=== PATIENT | female | born 1985 | race American Indian/Alaskan Native ===

== ENCOUNTER 2017-05-19 06:55 | Emergency (ER) | payer BC ==
[2017-05-19 07:09] VITALS: TEMP 97.5
[2017-05-19] MEDS ORDERED: HYDROmorphone 1 mg/ml ISec IVP STA ×2 (07:39→11:24)
[2017-05-19] MEDS ORDERED: Sodium Chloride 0.9% 1,000 ML IV STA (07:39)
[2017-05-19] MEDS ORDERED: Iohexol 240 (50 ml) PO STA (07:39)
[2017-05-19] MEDS ORDERED: Belladonna-Phenobarbital PO STA (07:39)
--- NOTE | 2017-05-19 07:39 | C.PDOC ---
History Of Present Illness Pt c/o upper abdominal pain and vomiting x 2 weeks, was seen in [facility] [place] twice during last week, CT shows some ? "arterial narrowing". Patient was d/c home on Cipro+Flagyl+ Percocet without improvement. Patient states she "cannot keep anything down" and reports she has an Appt with GI for the next week. No other complaints at this time. Time Seen by Provider: 05/19/17 07:25 Chief Complaint (Nursing): Abdominal Pain History Per: Patient History/Exam Limitations: no limitations Onset/Duration Of Symptoms: Days Current Symptoms Are (Timing): Still Present Location Of Pain/Discomfort: Diffuse Past Medical History Reviewed: Historical Data, Nursing Documentation, Vital Signs Vital Signs: Last Vital Signs Temp 97.5 F L 05/19/17 07:04 Pulse 68 05/19/17 12:29 Resp 16 05/19/17 12:29 BP 98/68 L 05/19/17 12:29 Pulse Ox 100 05/19/17 12:29 - Medical History PMH: Anxiety, HTN Surgical History: No Surg Hx Family History: States: No Known Family Hx - Social History Hx Alcohol Use: Yes Hx Substance Use: No - Immunization History Hx Influenza Vaccination: No Hx Pneumococcal Vaccination: No Review Of Systems Constitutional: Negative for: Fever, Chills Gastrointestinal: Positive for: Vomiting, Abdominal Pain. Negative for: Diarrhea Genitourinary: Negative for: Dysuria, Vaginal Bleeding Musculoskeletal: Negative for: Back Pain Skin: Negative for: Rash Physical Exam - Physical Exam Appears: Non-toxic, Other (Crying, Anxious) Skin: Normal Color, Warm, No Rash Head: Atraumatic, Normacephalic Oral Mucosa: Moist Neck: Normal ROM, Supple Cardiovascular: Rhythm Regular Respiratory: Normal Breath Sounds, No Rales, No Rhonchi, No Wheezing Gastrointestinal/Abdominal: Soft, Tenderness (Generalized), Guarding (Upper abdomen), No Rebound Back: No CVA Tenderness Extremity: Normal ROM, Capillary Refill (<2 seconds) Neurological/Psych: Oriented x3 ED Course And Treatment - Laboratory Results Result Diagrams: 05/19/17 07:52 05/19/17 07:52 O2 Sat by Pulse Oximetry: 97 (RA) Pulse Ox Interpretation: Normal - CT Scan/US CT abdomen/pelvis Other Rad Studies (CT/US): Read By Radiologist, Radiology Report Reviewed CT/US Interpretation: Accession No. : [id number]. Patient Name / ID : RAYMOND PALOMO / [id number]. Exam Date : 05/19/2017 09:59:47 ( Approved ). Study Comment : Sex / Age : F / 31Y. Creator : Jen Mackenzie. Dictator : Dia Holguin MD. Protective Services Case Worker : Publicity Director : Dia Holguni MD. Approver2 : Report Date : 05/19/2017 10:27:49. My Comment : . PROCEDURE: CT Abdomen and Pelvis with oral and IV contrast. HISTORY: abd pain, vomiting. COMPARISON: None available. TECHNIQUE: Contiguous axial images of the abdomen and pelvis. Oral and IV contrast was administered. Coronal and Sagittal reformats generated and reviewed. Contrast dose: 100 mL Visipaque. Radiation dose: Total exam DLP = 393.63 mGy-cm. This CT exam was performed using one or more of the following dose reduction techniques: Automated exposure control, adjustment of the mA and/or kV according to patient size, and/ or use of iterative reconstruction technique. FINDINGS: LOWER THORAX: No visible consolidation, pleural effusion, or pneumothorax. LIVER: Unremarkable. GALLBLADDER AND BILE DUCTS: Unremarkable. PANCREAS: Unremarkable. SPLEEN: Unremarkable. ADRENALS: Unremarkable. KIDNEYS AND URETERS: The kidneys enhance symmetrically. No hydronephrosis or obstructing renal calculus. BLADDER: The urinary bladder appears unremarkable. REPRODUCTIVE: Uterus is present. IUD. APPENDIX: Unremarkable. BOWEL: The stomach is nondistended. The bowel loops appear within normal limits of caliber without evidence of intestinal obstruction.Circumferential thickening of the rectosigmoid colon can be seen in setting of chronic diverticulosis. Clinical correlation is recommended to exclude colitis (I.e. infectious, inflammatory, ischemic) or diverticulitis. PERITONEUM: No significant free fluid. No definite free air. LYMPH NODES: No bulky lymphadenopathy identified. VASCULATURE: No aortic aneurysm. BONES: No acute osseous abnormality is detected. OTHER FINDINGS: None. IMPRESSION: Circumferential thickening of the rectosigmoid colon can be seen in setting of chronic diverticulosis. Clinical correlation is recommended to exclude colitis (I.e. infectious, inflammatory, ischemic) or diverticulitis. Progress Note: Plan: labs, Repeat CT. Dilaudid, Zofran, pepcid, IVF. On re- evaluation patient feels better, tolerates po and is stable to be d/c home with GI follow up. Disposition - Disposition Disposition: HOME/ ROUTINE Disposition Time: 12:11 Condition: IMPROVED Additional Instructions: Follow up with your PMD and Batch And Furnace Manager as scheduled. Return to Ed if feel worse. 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 - Scribe Statement The provider has reviewed the documentation as recorded by the Misbah Fernandez All medical record entries made by the Misbah were at my direction and personally dictated by me. I have reviewed the chart and agree that the record accurately reflects my personal performance of the history, physical exam, medical decision making, and the department course for this patient. I have also personally directed, reviewed, and agree with the discharge instructions and disposition.
[2017-05-19 07:56] LABS: BASO # 0.1 K/uL (0.0-0.2); BASO % 0.8 % (0.0-2.0); EOS % 0.3 % (0.0-4.0); HEMOGLOBIN 13.4 g/dL (11.0-16.0); MEAN CELL VOLUME 83.1 fL (81.0-99.0); MEAN CORPUSCULAR HEMOGLOBIN 27.9 pg (27.0-31.0); MEAN CORPUSCULAR HGB CONC 33.5 g/dL (33.0-37.0); MEAN PLATELET VOLUME 7.6 fL (7.2-11.7); MONO # 0.7 K/uL (0.0-0.8); MONO % 7.9 % (0.0-10.0); NEUT # 5.7 K/uL (1.8-7.0); RBC 4.79 Mil/uL (3.80-5.20); RED CELL DISTRIBUTION WIDTH 13.1 % (11.5-14.5); WHITE BLOOD COUNT 8.5 K/uL (4.8-10.8)
[2017-05-19] MEDS ORDERED: Iohexol 240 (50 ml) ONE (08:04)
[2017-05-19] MEDS ORDERED: Belladonna-Phenobarbital ONE (08:05)
[2017-05-19] MEDS ORDERED: Sodium Chloride 0.9% 1,000 ML ONE (08:05)
[2017-05-19 08:11] LABS: INR 1.2; PROTHROMBIN TIME 13.8 SECONDS (9.7-12.2)
[2017-05-19 08:19] LABS: CALCIUM 8.9 mg/dl (8.6-10.4); GFR AFRICAN-AMERICAN > 60; GFR NON-AFRICAN AMERICAN > 60; LIPASE 267 U/L (23-300)
[2017-05-19 08:21] LABS: ALB/GLOB RATIO 1.3 (1.0-2.1); ALBUMIN 4.7 g/dL (3.5-5.0); ALT/SGPT 23 U/L (9-52); AST/SGOT 31 U/L (14-36); BLOOD UREA NITROGEN 12 mg/dL (7-17)
[2017-05-19 08:23] LABS: HCG,QUALITATIVE URINE NEGATIVE (NEGATIVE)
[2017-05-19 08:37] LABS: SQUAMOUS EPITHIAL 4 /hpf (0-5); URINE BACTERIA OCC (<OCC); URINE BILIRUBIN NEGATIVE (NEGATIVE); URINE CLARITY Clear (Clear); URINE COLOR Yellow (YELLOW); URINE GLUCOSE (UA) NORMAL (Normal); URINE NITRATE NEGATIVE (NEGATIVE); URINE PROTEIN 1+ mg/dL (NEGATIVE); URINE UROBILINOGEN NORMAL mg/dL (0.2-1.0)
[2017-05-19 08:38] LABS: URINE BLOOD TRACE (NEGATIVE); URINE LEUKOCYTE ESTERASE TRACE Leu/uL (Negative)
[2017-05-19] MEDS ORDERED: Iodixanol 320 MG/ML 100 ML BOTTLE IV ONE (09:32)
[2017-05-19 10:25] VITALS: PULSE 68; RESP 16
--- NOTE | 2017-05-19 11:08 | CT ---
PROCEDURE: CT Abdomen and Pelvis with oral and IV contrast. HISTORY: abd pain, vomiting COMPARISON: None available. TECHNIQUE: Contiguous axial images of the abdomen and pelvis. Oral and IV contrast was administered. Coronal and Sagittal reformats generated and reviewed. Contrast dose: 100 mL Visipaque Radiation dose: Total exam DLP = 393.63 mGy-cm. This CT exam was performed using one or more of the following dose reduction techniques: Automated exposure control, adjustment of the mA and/or kV according to patient size, and/or use of iterative reconstruction technique. FINDINGS: LOWER THORAX: No visible consolidation, pleural effusion, or pneumothorax. LIVER: Unremarkable. GALLBLADDER AND BILE DUCTS: Unremarkable. PANCREAS: Unremarkable. SPLEEN: Unremarkable. ADRENALS: Unremarkable. KIDNEYS AND URETERS: The kidneys enhance symmetrically. No hydronephrosis or obstructing renal calculus. BLADDER: The urinary bladder appears unremarkable. REPRODUCTIVE: Uterus is present. IUD. APPENDIX: Unremarkable. BOWEL: The stomach is nondistended. The bowel loops appear within normal limits of caliber without evidence of intestinal obstruction.Circumferential thickening of the rectosigmoid colon can be seen in setting of chronic diverticulosis. Clinical correlation is recommended to exclude colitis (I.e. infectious, inflammatory, ischemic) or diverticulitis. PERITONEUM: No significant free fluid. No definite free air. LYMPH NODES: No bulky lymphadenopathy identified. VASCULATURE: No aortic aneurysm. BONES: No acute osseous abnormality is detected. OTHER FINDINGS: None. IMPRESSION: Circumferential thickening of the rectosigmoid colon can be seen in setting of chronic diverticulosis. Clinical correlation is recommended to exclude colitis (I.e. infectious, inflammatory, ischemic) or diverticulitis.
[2017-05-19 12:35] VITALS: BP 98/68
[2017-05-19 14:22] VITALS: O2SAT 97
== END 2017-05-19 12:35 | disposition home or self-care (01) ==
LOC: C.ER 06:55
DX: R10.10 Upper abdominal pain, unspecified (principal); I10 Essential (primary) hypertension
CPT/HCPCS: 74177; 80053; 81001; 83690; 84703; 85025; 85610; 85730; 96361; 96374; 96375; 96376; 99284; J1170; J2405; J7040; Q9966; Q9967

== ENCOUNTER 2017-05-22 21:36 | Inpatient (IN) | payer BC ==
[2017-05-22] MEDS ORDERED: Lactated Ringer's 1,000 ML IVB STA (22:27)
[2017-05-22] MEDS ORDERED: Lactated Ringer's 1,000 ML ONE (22:34)
[2017-05-22 22:57] LABS: BASO % 0.3 % (0.0-2.0); EOS # 0.2 K/uL (0.0-0.7); EOS % 2.6 % (0.0-4.0); HEMOGLOBIN 11.5 g/dL (11.0-16.0); LYMPH # 1.6 K/uL (1.0-4.3); LYMPH % 22.1 % (20.0-40.0); MEAN CORPUSCULAR HEMOGLOBIN 27.2 pg (27.0-31.0); MEAN CORPUSCULAR HGB CONC 32.8 g/dL (33.0-37.0); MEAN PLATELET VOLUME 7.5 fL (7.2-11.7); MONO # 0.3 K/uL (0.0-0.8); NRBC % 0.1 % (0.0-2.0); RBC 4.23 Mil/uL (3.80-5.20); RED CELL DISTRIBUTION WIDTH 12.9 % (11.5-14.5); WHITE BLOOD COUNT 7.1 K/uL (4.8-10.8)
[2017-05-22 23:07] LABS: ALB/GLOB RATIO 1.5 (1.0-2.1); ALT/SGPT 19 U/L (9-52); AST/SGOT 8 U/L (14-36); BLOOD UREA NITROGEN 6 mg/dL (7-17); GFR AFRICAN-AMERICAN > 60; GFR NON-AFRICAN AMERICAN > 60; LIPASE 276 U/L (23-300); MAGNESIUM 1.7 mg/dL (1.6-2.3)
[2017-05-22] MEDS ORDERED: DiphenhydrAMINE 50 mg/ml Inj IVP STA (23:29)
[2017-05-22 23:40] LABS: SQUAMOUS EPITHIAL 3 /hpf (0-5); URINE BACTERIA OCC (<OCC); URINE BILIRUBIN NEGATIVE (NEGATIVE); URINE BLOOD NEGATIVE (NEGATIVE); URINE CLARITY Clear (Clear); URINE COLOR Yellow (YELLOW); URINE GLUCOSE (UA) NORMAL (Normal); URINE LEUKOCYTE ESTERASE TRACE Leu/uL (Negative); URINE NITRATE NEGATIVE (NEGATIVE); URINE PROTEIN NEGATIVE (NEGATIVE); URINE UROBILINOGEN NORMAL mg/dL (0.2-1.0)
[2017-05-22 23:42] LABS: HCG,QUALITATIVE URINE NEGATIVE (NEGATIVE)
[2017-05-22] MEDS ORDERED: DiphenhydrAMINE 50 mg/ml Inj ONE (23:47)
[2017-05-22 23:51] LABS: BENZODIAZEPINES, UR NEGATIVE (NEGATIVE); OPIATES, UR NEGATIVE (NEGATIVE); PHENCYCLIDINE, UR NEGATIVE (NEGATIVE)
[2017-05-22 23:54] LABS: BARBITURATES, UR POSITIVE (NEGATIVE)
--- NOTE | 2017-05-23 00:35 | C.PDOC ---
History Of Present Illness Pt c/o N/V/D and abdominal pain. 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 She was discharged home with antibiotics without improvement. Pt was then seen in this ED where she had another CT scan of the abdomen/pelvis that showed diverticulosis. She was then discharged home with GI meds without improvement. This is this pt's third ED visit for these symptoms. Time Seen by Provider: 05/22/17 22:12 Chief Complaint (Nursing): Abdominal Pain History Per: Patient Onset/Duration Of Symptoms: Days (about 3 weeks), Waxing/Waning, Persistent Current Symptoms Are (Timing): Still Present Severity: Moderate Location Of Pain/Discomfort: Epigastric Quality Of Discomfort: "Pain" Associated Symptoms: Nausea, Vomiting, Diarrhea, Loss Of Appetite Exacerbating Factors: Food Alleviating Factors: None Last Bowel Movement: Today Additional History Per: Prior Records Past Medical History Reviewed: Historical Data, Nursing Documentation, Vital Signs Vital Signs: Last Vital Signs Temp 98.1 F 05/23/17 00:19 Pulse 109 H 05/23/17 00:19 Resp 20 05/23/17 00:19 BP 147/92 H 05/23/17 00:19 Pulse Ox 99 05/23/17 00:19 - Medical History PMH: Anxiety, HTN Surgical History: No Surg Hx Family History: States: Unknown Family Hx - Social History Hx Alcohol Use: Yes Hx Substance Use: No - Immunization History Hx Influenza Vaccination: No Hx Pneumococcal Vaccination: No Review Of Systems Except As Marked, All Systems Reviewed And Found Negative. Constitutional: Negative for: Fever Cardiovascular: Negative for: Chest Pain Respiratory: Negative for: Shortness of Breath Gastrointestinal: Positive for: Nausea, Vomiting, Abdominal Pain, Diarrhea. Negative for: Melena, Hematochezia, Hematemesis Genitourinary: Negative for: Dysuria, Vaginal Discharge, Vaginal Bleeding Musculoskeletal: Negative for: Neck Pain Skin: Negative for: Rash Neurological: Negative for: Weakness, Numbness Physical Exam - Physical Exam Appears: Other (Uncomfortable) Skin: Normal Color, Warm, Dry Head: Atraumatic, Normacephalic Eye(s): bilateral: Normal Inspection, PERRL, EOMI Neck: Normal ROM, Supple Cardiovascular: Rhythm Regular Respiratory: Normal Breath Sounds, No Accessory Muscle Use Gastrointestinal/Abdominal: Soft, Tenderness (epigastric), No Distention Back: No CVA Tenderness Extremity: Normal ROM Neurological/Psych: Oriented x3, Normal Motor, Normal Sensation ED Course And Treatment - Laboratory Results Result Diagrams: 05/22/17 22:48 05/22/17 22:48 Interpretation Of Abnormal: Mild hypokalemia. Urine POC: Negative O2 Sat by Pulse Oximetry: 99 Pulse Ox Interpretation: Normal Progress - Interventions Interventions:: Observation, Intravenous fluid - Medications Administered Intravenous: Antiemetic, Antihistamine (H-1), H-2 arron, NSAID - Data Reviewed Data Reviewed: Lab, Old records - Patient Status Patient status: Partially improved - Continuity of Care Discussed patient case with:: Patient, ED Nurse, On-call PMD-pt unassigned - Patient Plan Patient Plan: Admission Disposition Discussed With : Sabine Paz Comment: She accepted pt on her service. Doctor Will See Patient In The: Hospital Counseled Patient/Family Regarding: Studies Performed, Diagnosis - Disposition Disposition: HOSPITALIZED Disposition Time: 00:40 Condition: FAIR - Clinical Impression Clinical Impression: Intractable abdominal pain, Nausea, vomiting, and diarrhea
[2017-05-23] MEDS ORDERED: Sodium Chloride 0.9% 1,000 ML ONE (01:39)
[2017-05-23] MEDS: Sodium Chloride 0.9% 1,000 ML IV SCH ×2 (01:40→19:59)
[2017-05-23 09:01] LABS: HEMOGLOBIN 11.4 g/dL (11.0-16.0); MEAN CELL VOLUME 82.5 fL (81.0-99.0); MEAN CORPUSCULAR HEMOGLOBIN 27.9 pg (27.0-31.0); MEAN CORPUSCULAR HGB CONC 33.9 g/dL (33.0-37.0); MEAN PLATELET VOLUME 7.5 fL (7.2-11.7); RBC 4.08 Mil/uL (3.80-5.20); RED CELL DISTRIBUTION WIDTH 12.9 % (11.5-14.5); WHITE BLOOD COUNT 6.5 K/uL (4.8-10.8)
[2017-05-23 09:42] LABS: BLOOD UREA NITROGEN 4 mg/dL (7-17); CALCIUM 8.2 mg/dl (8.6-10.4); GFR AFRICAN-AMERICAN > 60; GFR NON-AFRICAN AMERICAN > 60
[2017-05-23] MEDS ORDERED: HYDROmorphone 0.5 mg/0.5 ml ISec IVP PRN (09:54)
--- NOTE | 2017-05-23 09:56 | CP.PCM.CON ---
<Samantha Sherwood - Last Filed: 05/23/17 10:04> History of Present Illness - History of Present Illness History of Present Illness: GI Fellow PGY4 Consult Note This is a 31yF with pmhx of depression and anxiety presenting with complainants of abdominal pain, nausea vomiting and diarrhea for 3 weeks. Pt reports she usually has GI issues but never this severe. She is having epigastric pain every time she eats something and subsequently vomits before finding any relief in abdominal discomfort. Pt reports she is unable to hold down liquids or solids. She is now afraid to eat and has lost 10pounds over the past 3weeks. Pain is a twisting sensation in her epigastric area with no radiation of pain. 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 She was seen by a vascular surgeon at [facility] and was told to follow up outpt with no plan for inpt surgery. Pt came to [facility] 05/19/[address] scan showing diverticulosis and no other pathology and discharged on PPI, crafate, zofran, and bently. Pt reports that this did not help her pain so she came to the hospital and was now admitted. She has been having diarrhea 3-4 times a day over the past three weeks which is not her baseline. She had a EGD 5yrs ago that was negative per pt , no colonoscopy in past. ROS: A 12pt ROS was negative except as above PmHx: As stated in HPI PsHX: None FHx: Mom with GI issues, denies colon cancer SHx: Denies tobacco, etoh, does smoke marijuana at least twice a month, denies any other illicit drugs Past Patient History - Past Medical History & Family History Past Medical History?: Yes - Past Social History Smoking Status: Former Smoker - CARDIAC Hx Cardiac Disorders: Yes Hx Hypertension: Yes - PULMONARY Hx Respiratory Disorders: No - NEUROLOGICAL Hx Neurological Disorder: No - HEENT Hx HEENT Problems: No - RENAL Hx Chronic Kidney Disease: No - HEMATOLOGICAL/ONCOLOGICAL Hx Blood Disorders: No - INTEGUMENTARY Hx Dermatological Problems: No - MUSCULOSKELETAL/RHEUMATOLOGICAL Hx Musculoskeletal Disorders: No Hx Falls: No - GASTROINTESTINAL Hx Gastrointestinal Disorders: Yes Hx Nausea: Yes Hx Vomiting: Yes - GENITOURINARY/GYNECOLOGICAL Hx Genitourinary Disorders: No - PSYCHIATRIC Hx Psychophysiologic Disorder: Yes Hx Anxiety: Yes Hx Substance Use: Yes (Last Marijuana) - SURGICAL HISTORY Hx Surgeries: Yes Other/Comment: [facility] - ANESTHESIA Hx Anesthesia: Yes Hx Anesthesia Reactions: No Hx Malignant Hyperthermia: No Has any member of the family had a problem w/ anesthesia?: No Meds Allergies/Adverse Reactions: Allergies Allergy/AdvReac Type Severity Reaction Status Date / Time No Known Allergies Allergy Verified 05/22/17 21:44 - Medications Medications: Current Medications Clonazepam (Klonopin) 1 mg PO Q8 SAMEER Last Admin: 05/23/17 06:03 Dose: 1 mg Clonidine HCl (Catapres) 0.2 mg PO DAILY SAMEER Fluoxetine HCl (Prozac) 40 mg PO DAILY [facility] Hydromorphone HCl (Dilaudid) 0.25 mg IVP Q4H PRN PRN Reason: Pain, moderate (4-7) Last Admin: 05/23/17 05:45 Dose: 0.25 mg Sodium Chloride (Sodium Chloride 0.9%) 1,000 mls @ 60 mls/hr IV .[id number] SAMEER Last Admin: 05/23/17 01:40 Dose: 60 mls/hr Pantoprazole Sodium (Protonix Ec Tab) 40 mg PO DAILY [facility] Pneumococcal Polyvalent Vaccine (Pneumovax 23 Vaccine) 0.5 ml IM .ONCE ONE Stop: 05/26/17 14:01 Sucralfate (Carafate Tab) 1 gm PO BID [facility] Physical Exam - Constitutional Appears: Non-toxic, No Acute Distress - Head Exam Head Exam: ATRAUMATIC, NORMAL INSPECTION, NORMOCEPHALIC - Eye Exam Eye Exam: EOMI, Normal appearance, PERRL Pupil Exam: PERRL - ENT Exam ENT Exam: Mucous Membranes Moist, Normal Exam - Neck Exam Neck exam: Positive for: Normal Inspection - Respiratory Exam Respiratory Exam: Clear to Auscultation Bilateral, NORMAL BREATHING PATTERN - Cardiovascular Exam Cardiovascular Exam: REGULAR RHYTHM, RRR - GI/Abdominal Exam GI & Abdominal Exam: Normal Bowel Sounds, Soft, Tenderness. absent: Distended, Guarding, Organomegaly - Rectal Exam Rectal Exam: Deferred - Extremities Exam Extremities exam: Positive for: full ROM, normal inspection - Back Exam Back exam: NORMAL INSPECTION - Neurological Exam Neurological exam: Alert, Oriented x3 - Psychiatric Exam Psychiatric exam: Anxious - Skin Skin Exam: Dry, Intact, Normal Color, Warm Results - Vital Signs Recent Vital Signs: Last Vital Signs Temp 98.0 F 05/23/17 04:00 Pulse 84 05/23/17 04:05 Resp 20 05/23/17 04:00 BP 154/103 H 05/23/17 04:00 Pulse Ox 100 05/23/17 04:00 - Labs Result Diagrams: 05/23/17 08:50 05/23/17 08:50 Labs: Laboratory Results - last 24 hr 05/22/17 05/22/17 05/22/17 22:48 22:48 23:28 WBC 7.1 RBC 4.23 Hgb 11.5 Hct 35.1 MCV 83.0 MCH 27.2 MCHC 32.8 L RDW 12.9 Plt Count 337 MPV 7.5 Neut % (Auto) 71.0 Lymph % (Auto) 22.1 [place] % (Auto) 4.0 Eos % (Auto) 2.6 Baso % (Auto) 0.3 Neut # 5.0 Lymph # 1.6 [place] # 0.3 Eos # 0.2 Baso # 0.0 Sodium 136 Potassium 3.0 L Chloride 100 Carbon Dioxide 27 Anion Gap 12 BUN 6 L Creatinine 0.4 L Est GFR ( Amer) > 60 Est GFR (Non-Af Amer) > 60 Random Glucose 108 H Calcium 8.0 L Phosphorus 3.4 Magnesium 1.7 Total Bilirubin 0.4 AST 8 L D ALT 19 Alkaline Phosphatase 63 Total Protein 6.5 Albumin 4.0 Globulin 2.6 Albumin/Globulin Ratio 1.5 Lipase 276 Urine Color Yellow Urine Clarity Clear Urine pH 6.0 Ur Specific [place] 1.017 Urine Protein Negative Urine Glucose (UA) Normal Urine Ketones Trace Urine Blood Negative Urine Nitrate Negative Urine Bilirubin Negative Urine Urobilinogen Normal Ur Leukocyte Esterase Trace Urine WBC (Auto) 4 Urine RBC (Auto) 1 Ur Squamous Epith Cells 3 Urine Bacteria Occ H Urine HCG, Qual Negative Urine Opiates Screen Urine Methadone Screen Ur Barbiturates Screen Ur Phencyclidine Scrn Ur Amphetamines Screen U Benzodiazepines Scrn U Oth Cocaine Metabols U Cannabinoids Screen 05/22/17 05/23/17 05/23/17 23:28 08:50 08:50 WBC 6.5 RBC 4.08 Hgb 11.4 Hct 33.6 L MCV 82.5 MCH 27.9 MCHC 33.9 RDW 12.9 Plt Count 330 MPV 7.5 Neut % (Auto) Lymph % (Auto) [place] % (Auto) Eos % (Auto) Baso % (Auto) Neut # Lymph # [place] # Eos # Baso # Sodium 136 Potassium 3.2 L Chloride 101 Carbon Dioxide 29 Anion Gap 9 L BUN 4 L Creatinine 0.5 L Est GFR ( Amer) > 60 Est GFR (Non-Af Amer) > 60 Random Glucose 84 Calcium 8.2 L Phosphorus Magnesium Total Bilirubin AST ALT Alkaline Phosphatase Total Protein Albumin Globulin Albumin/Globulin Ratio Lipase Urine Color Urine Clarity Urine pH Ur Specific [place] Urine Protein Urine Glucose (UA) Urine Ketones Urine Blood Urine Nitrate Urine Bilirubin Urine Urobilinogen Ur Leukocyte Esterase Urine WBC (Auto) Urine RBC (Auto) Ur Squamous Epith Cells Urine Bacteria Urine HCG, Qual Urine Opiates Screen Negative Urine Methadone Screen Negative Ur Barbiturates Screen Positive H Ur Phencyclidine Scrn Negative Ur Amphetamines Screen Negative U Benzodiazepines Scrn Negative U Oth Cocaine Metabols Negative U Cannabinoids Screen Positive H Assessment & Plan - Assessment and Plan (Free Text) Assessment: This is a 31yF with pmhx of depression and anxiety presenting with abdominal pain, nausea, vomiting and diarrhea. 1. Abdominal pain, nausea and vomiting ddx: median arcuate ligament syndrome, cyclical vomiting syndrome from cannabis, PUD, H.pylori, gastritis, esophagitis 2. Unintentional weightloss 3. Diarrhea 4. 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-will order CT Angio for further evaluation -Advance to clear liquid diet -If CT Angio negative, will consider EGD for further evaluation -PPI daily -Carafate daily -Will order stool studies to r/o infection etiology -Discussed with pt about cessation of marijuana which can cause cyclical vomiting syndrome -Pt may need abx for UTI, will defer to primary team <Sheldon Ignacio - Last Filed: 05/23/17 13:22> Meds - Medications Medications: Current Medications Clonazepam (Klonopin) 1 mg PO Q8 [facility] Last Admin: 05/23/17 06:03 Dose: 1 mg Clonidine HCl (Catapres) 0.2 mg PO DAILY [facility] Last Admin: 05/23/17 10:04 Dose: 0.2 mg Fluoxetine HCl (Prozac) 40 mg PO DAILY [facility] Last Admin: 05/23/17 09:58 Dose: 40 mg Hydromorphone HCl (Dilaudid) 0.5 mg IVP Q4H PRN PRN Reason: moderate pain Last Admin: 05/23/17 10:24 Dose: 0.5 mg Sodium Chloride (Sodium Chloride 0.9%) 1,000 mls @ 60 mls/hr IV .[id number] [facility] Last Admin: 05/23/17 01:40 Dose: 60 mls/hr Pantoprazole Sodium (Protonix Ec Tab) 40 mg PO DAILY [facility] Last Admin: 05/23/17 10:03 Dose: 40 mg Pneumococcal Polyvalent Vaccine (Pneumovax 23 Vaccine) 0.5 ml IM .ONCE ONE Stop: 05/26/17 14:01 Sucralfate (Carafate Tab) 1 gm PO BID [facility] Last Admin: 05/23/17 10:41 Dose: 1 gm Results - Vital Signs Recent Vital Signs: Last Vital Signs Temp 98.1 F 05/23/17 08:00 Pulse 112 H 05/23/17 08:00 Resp 20 05/23/17 08:00 BP 127/93 H 05/23/17 08:00 Pulse Ox 100 05/23/17 08:00 - Labs Result Diagrams: 05/23/17 08:50 05/23/17 08:50 Labs: Laboratory Results - last 24 hr 05/22/17 05/22/17 05/22/17 22:48 22:48 23:28 WBC 7.1 RBC 4.23 Hgb 11.5 Hct 35.1 MCV 83.0 MCH 27.2 MCHC 32.8 L RDW 12.9 Plt Count 337 MPV 7.5 Neut % (Auto) 71.0 Lymph % (Auto) 22.1 [place] % (Auto) 4.0 Eos % (Auto) 2.6 Baso % (Auto) 0.3 Neut # 5.0 Lymph # 1.6 [place] # 0.3 Eos # 0.2 Baso # 0.0 Sodium 136 Potassium 3.0 L Chloride 100 Carbon Dioxide 27 Anion Gap 12 BUN 6 L Creatinine 0.4 L Est GFR ( Amer) > 60 Est GFR (Non-Af Amer) > 60 Random Glucose 108 H Calcium 8.0 L Phosphorus 3.4 Magnesium 1.7 Total Bilirubin 0.4 AST 8 L D ALT 19 Alkaline Phosphatase 63 Total Protein 6.5 Albumin 4.0 Globulin 2.6 Albumin/Globulin Ratio 1.5 Lipase 276 Urine Color Yellow Urine Clarity Clear Urine pH 6.0 Ur Specific [place] 1.017 Urine Protein Negative Urine Glucose (UA) Normal Urine Ketones Trace Urine Blood Negative Urine Nitrate Negative Urine Bilirubin Negative Urine Urobilinogen Normal Ur Leukocyte Esterase Trace Urine WBC (Auto) 4 Urine RBC (Auto) 1 Ur Squamous Epith Cells 3 Urine Bacteria Occ H Urine HCG, Qual Negative Urine Opiates Screen Urine Methadone Screen Ur Barbiturates Screen Ur Phencyclidine Scrn Ur Amphetamines Screen U Benzodiazepines Scrn U Oth Cocaine Metabols U Cannabinoids Screen 05/22/17 05/23/17 05/23/17 23:28 08:50 08:50 WBC 6.5 RBC 4.08 Hgb 11.4 Hct 33.6 L MCV 82.5 MCH 27.9 MCHC 33.9 RDW 12.9 Plt Count 330 MPV 7.5 Neut % (Auto) Lymph % (Auto) [place] % (Auto) Eos % (Auto) Baso % (Auto) Neut # Lymph # [place] # Eos # Baso # Sodium 136 Potassium 3.2 L Chloride 101 Carbon Dioxide 29 Anion Gap 9 L BUN 4 L Creatinine 0.5 L Est GFR ( Amer) > 60 Est GFR (Non-Af Amer) > 60 Random Glucose 84 Calcium 8.2 L Phosphorus Magnesium Total Bilirubin AST ALT Alkaline Phosphatase Total Protein Albumin Globulin Albumin/Globulin Ratio Lipase Urine Color Urine Clarity Urine pH Ur Specific [place] Urine Protein Urine Glucose (UA) Urine Ketones Urine Blood Urine Nitrate Urine Bilirubin Urine Urobilinogen Ur Leukocyte Esterase Urine WBC (Auto) Urine RBC (Auto) Ur Squamous Epith Cells Urine Bacteria Urine HCG, Qual Urine Opiates Screen Negative Urine Methadone Screen Negative Ur Barbiturates Screen Positive H Ur Phencyclidine Scrn Negative Ur Amphetamines Screen Negative U Benzodiazepines Scrn Negative U Oth Cocaine Metabols Negative U Cannabinoids Screen Positive H Attending/Attestation - Attestation I have personally seen and examined this patient.: Yes I have fully participated in the care of the patient.: Yes I have reviewed all pertinent clinical information: Yes Notes (Text): 01/07/18 13:20 31 year old female with new onset post prandial abdominal pain x 3 weeks with weight loss. 1. Abdominal pain 2. Nausea and vomiting 3. Weight loss Plan: -patient reports being diagnosed with celiac artery compression syndrome -will order CT angio to evaluate for this problem -if positive, she would need vascular surgery eval -if negative, she will probably need elective egd/colonoscopy at some point to eval for other causes of her symptoms -continue PPI in the meantime
[2017-05-23] MEDS ORDERED: FLUOXETINE HCL 40 MG PO SCH (10:00)
[2017-05-23] MEDS: Pantoprazole 40 mg EC Tab PO SCH (10:03)
[2017-05-23] MEDS ORDERED: Iodixanol 320 MG/ML 100 ML BOTTLE IV ONE (10:25)
--- NOTE | 2017-05-23 14:36 | CT ---
PROCEDURE: CTA of the abdomen and pelvis with contrast HISTORY: r/o median arcuate ligament syndrome, abdominal pain COMPARISON: No prior similar study available for comparison TECHNIQUE: Axial and reformatted coronal and sagittal CTA images of the abdomen and pelvis were obtained after IV contrast administration. Total exam DLP: 543.09 FINDINGS: The celiac trunk is normal in caliber and shape. There is no evidence of compression on the proximal and origin of the celiac trunk to suggest medial arcuate ligament syndrome. There is a significant reviews in the artery SMA angle measures 18.8 decrease (normal > 41 degrees ) there is narrowing of the left renal vein at the midline level. There is mild dilate a martinez of the descending and proximal 3rd portion of the duodenum up to the midline. Findings suspicious for nutcracker syndrome. Mild hepatic steatosis is noted. Otherwise the liver is a, spleen pancreas adrenal glands and kidneys are grossly unremarkable. The gallbladder is grossly unremarkable. No evidence of bowel obstruction or acute pathology in the GI system. The uterus is slightly prominent in size contains IUD. No evidence of suspicious mass or acute pathology in the pelvis. The urinary bladder is grossly unremarkable. The osseous structures are grossly unremarkable. IMPRESSION: No CTA evidence of median arcuate ligament syndrome Findings suspicious for nutcracker syndrome as described above.
[2017-05-23 22:12] LABS: IRON 51 ug/dL (37-170)
[2017-05-23 22:13] LABS: HDL CHOLESTEROL 41 mg/dL (30-70)
[2017-05-23 22:23] LABS: TOTAL IRON BINDING CAPACITY 236 ug/dL (250-450)
[2017-05-23 22:24] LABS: % IRON SATURATION 22 (20-55); LDL CHOLESTEROL 92 mg/dL (0-129)
[2017-05-23 23:19] LABS: FOLATE > 20.0 ng/mL
--- NOTE | 2017-05-24 04:09 | HP ---
CHIEF COMPLAINT: Abdominal pain, nausea, vomiting. HISTORY OF PRESENT ILLNESS: Ms. Dianne Pak is a 31-year-old female with history of depression and anxiety, came to the emergency room of [facility], complaining about abdominal pain, nausea, vomiting and diarrhea for three weeks. The patient reports she usually has GI issues, but never this severe. She is having epigastric pain every time she eats something and sometimes vomits before finding any relief in abdominal discomfort. The patient reports that she is unable to hold down liquid or solid. She is now afraid to eat and lost 10 pounds over the past three weeks. Pain is twisting sensation in her epigastric area with no radiation of pain. The patient reports she has been to the hospital four times for this, twice at [facility] and twice to [facility]. 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 She was seen by the vascular surgeon at the [facility] and was told to follow up outpatient with no plan for input surgery. The patient came to the [facility] with CT scan showing diverticulosis and no other pathology, and discharged on PPI, Carafate, Zofran, and Bentyl was given. The patient reports that these did not help her pain, so she came to the hospital again and now admitted. She has been having a diarrhea three to four times a day, but no blood in the stool. She has EGD five years ago and that was negative as per the patient. No colonoscopy in the past. PAST MEDICAL HISTORY: As above. FAMILY HISTORY: Mother has GI issues, denies colon cancer. HABITS: Denies smoking, ethanol, does smoke marijuana at least twice a month, denies any other illicit drugs. ALLERGIES: THE PATIENT IS NOT ALLERGIC WITH ANY MEDICATIONS. HOME MEDICATIONS: Klonopin, Catapres, Prozac, Dilaudid, Protonix. PHYSICAL EXAMINATION: VITAL SIGNS: Temperature 98, pulse 96, blood pressure 129/87, respiratory rate 18. HEENT: Head: Normocephalic, atraumatic. Eyes: PERRLA. Extraocular muscles intact. Conjunctivae clear. Nose patent. Mucous membranes moist. NECK: Supple. No carotid bruit. No JVD or thyromegaly. CHEST: Bilaterally symmetrical. HEART: S1 and S2 positive. LUNGS: Clear to auscultation. ABDOMEN: Soft. Bowel sound positive. No organomegaly. EXTREMITIES: No edema, no cyanosis. NEUROLOGIC: The patient is awake, alert, moving all four extremities. No focal deficits. LABORATORY DATA: White blood cells 6.5, hemoglobin 11.4, hematocrit 33.6, platelets 330. Sodium 136, potassium 3.2, BUN 4, creatinine 0.5, calcium 8.2. ASSESSMENT AND PLAN: Ms. Dianne Pak is a 31-year-old lady with hypokalemia, replaced; hypocalcemia; drug screen positive for barbiturates and cannabinoids, came with intractable abdominal pain. Angiographic CT done in the ER, seen by Dr. 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 History of depression, anxiety. 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 We will continue supportive care with pain control and antiemetic. The patient has diagnosis of celiac artery compression syndrome/median arcuate ligament syndrome diagnosed in [facility]. We will order CT angio for further evaluation, that is done. Advance to clear liquid diet. If CT angio negative, we will consider esophagogastroduodenoscopy for further evaluation by GI, PPI daily, Carafate daily, stool studies. We will rule out infectious etiology, appreciated GI input, discussion done with the patient for the cessation of marijuana, which can cause cyclical vomiting syndrome. The patient may need antibiotics for urinary tract infection. Meanwhile, we will continue present treatment. No CT evidence of median arcuate ligament syndrome. Finding suspicious of nutcracker syndrome. Recent blood workup ordered by GI. Psych consult called with GI doctor, Dr. Sylwia Longoria, for the patient's depression. Giving Zofran for nausea and vomiting. We will follow. Sabine Paz MD
[2017-05-24 08:01] LABS: HEMOGLOBIN 10.8 g/dL (11.0-16.0); MEAN CELL VOLUME 82.9 fL (81.0-99.0); MEAN CORPUSCULAR HEMOGLOBIN 26.8 pg (27.0-31.0); MEAN CORPUSCULAR HGB CONC 32.4 g/dL (33.0-37.0); MEAN PLATELET VOLUME 7.3 fL (7.2-11.7); RBC 4.01 Mil/uL (3.80-5.20); WHITE BLOOD COUNT 4.7 K/uL (4.8-10.8)
[2017-05-24 08:05] LABS: INR 1.1; PROTHROMBIN TIME 12.7 SECONDS (9.7-12.2)
[2017-05-24 08:37] LABS: BLOOD UREA NITROGEN < 2 mg/dL (7-17); CALCIUM 7.8 mg/dl (8.6-10.4); GFR AFRICAN-AMERICAN > 60; GFR NON-AFRICAN AMERICAN > 60
[2017-05-24] MEDS: Calcium-Vit D 250 mg-125 Units Tab UD PO SCH (09:00)
[2017-05-24] MEDS: Pantoprazole 40 mg EC Tab PO SCH (09:39)
[2017-05-24 10:03] LABS: MAGNESIUM 1.7 mg/dL (1.6-2.3)
[2017-05-24] MEDS ORDERED: Lactated Ringer's 1,000 ML IV ONE ×2 (11:40)
[2017-05-24] MEDS ORDERED: Midazolam 2 MG/2 ML VIAL ONE (11:47)
[2017-05-24] MEDS ORDERED: Lidocaine Hydrochloride 5 ML INJ ONE (11:47)
[2017-05-24] MEDS ORDERED: Propofol 10 mg/ml Inj (20 ML) ONE (11:47)
--- NOTE | 2017-05-24 12:48 | CP.PCM.PN ---
<Verito Rice - Last Filed: 05/25/17 21:27> Subjective - Date & Time of Evaluation Date of Evaluation: 05/24/17 Time of Evaluation: 10:05 - Subjective Subjective: 31 yr female w/ history of intractible abdominal pain, anxiety, depression, celiac artery compression, diverticulosis, PUD, H. pylori, esphagitis & cannabis use. Pt seen 05/24/16 at bedside before endoscopy. She appears comfortable but concerned that she may feel pain and wants more pain medication. She denies headache, fever, chills, chest pain, sob, urinary changes. No distress noted. Objective - Vital Signs/Intake and Output Vital Signs (last 24 hours): Temp Pulse Resp BP Pulse Ox 98 F 85 18 120/80 98 05/24/17 12:43 05/24/17 12:43 05/24/17 12:43 05/24/17 12:43 05/24/17 12:43 Intake and Output: 05/24/17 05/24/17 06:59 18:59 Intake Total 900 Balance 900 - Medications Medications: Current Medications Calcium/Vitamin D (Oscal-D 250 Mg-125 Units Tab) 1 tab PO DAILY [facility] Clonazepam (Klonopin) 1 mg PO Q8 [facility] Last Admin: 05/24/17 05:54 Dose: 1 mg Clonidine HCl (Catapres) 0.2 mg PO DAILY [facility] Last Admin: 05/24/17 09:39 Dose: 0.2 mg Fluoxetine HCl (Prozac) 40 mg PO DAILY [facility] Last Admin: 05/24/17 09:42 Dose: 40 mg Hydromorphone HCl (Dilaudid) 0.5 mg IVP Q4H PRN PRN Reason: moderate pain Last Admin: 05/24/17 08:25 Dose: 0.5 mg Potassium Chloride (Potassium Chloride 20 Meq/100 Ml) 20 meq in 100 mls @ 50 mls/hr IVPB Q2 [facility] Stop: 05/24/17 15:59 Last Admin: 05/24/17 09:45 Dose: 50 mls/hr Potassium Chloride 20 meq/ (Sodium Chloride) 1,010 mls @ 60 mls/hr IV .[id number] [facility] Pantoprazole Sodium (Protonix Ec Tab) 40 mg PO DAILY [facility] Last Admin: 05/24/17 09:39 Dose: 40 mg Pneumococcal Polyvalent Vaccine (Pneumovax 23 Vaccine) 0.5 ml IM .ONCE ONE Stop: 05/26/17 14:01 Sucralfate (Carafate Tab) 1 gm PO BID [facility] Last Admin: 05/24/17 09:38 Dose: 1 gm - Labs Labs: 05/24/17 07:21 05/24/17 07:21 PT 12.7 SECONDS (9.7-12.2) H 05/24/17 07:21 INR 1.1 05/24/17 07:21 APTT 28 SECONDS (21-34) 05/24/17 07:21 - Constitutional Appears: Well - Head Exam Head Exam: ATRAUMATIC, NORMAL INSPECTION, NORMOCEPHALIC - Eye Exam Eye Exam: EOMI, Normal appearance, PERRL Pupil Exam: NORMAL ACCOMODATION, PERRL - ENT Exam ENT Exam: Mucous Membranes Moist, Normal Exam - Neck Exam Neck Exam: Full ROM, Normal Inspection. absent: Lymphadenopathy - Respiratory Exam Respiratory Exam: Clear to Ausculation Bilateral, NORMAL BREATHING PATTERN - Cardiovascular Exam Cardiovascular Exam: REGULAR RHYTHM, +S1, +S2. absent: Murmur - GI/Abdominal Exam GI & Abdominal Exam: Soft, Tenderness, Normal Bowel Sounds - Extremities Exam Extremities Exam: Calf Tenderness - Back Exam Back Exam: NORMAL INSPECTION - Neurological Exam Neurological Exam: Alert, Awake, CN II-XII Intact, Normal Gait, Oriented x3 - Psychiatric Exam Psychiatric exam: Depressed, Flat Affect - Skin Skin Exam: Dry, Intact, Normal Color, Warm Assessment and Plan (1) Hypokalemia Status: Acute (2) Dehydration Status: Acute (3) Hypocalcemia Status: Acute (4) Cannabis dependence, episodic Status: Acute (5) Uses barbiturate Status: Acute (6) UTI (urinary tract infection) Status: Acute (7) Unintended weight loss Status: Acute (8) Abdominal pain Status: Acute (9) Intractable abdominal pain Status: Acute (10) Nausea, vomiting, and diarrhea Status: Acute - Assessment and Plan (Free Text) Plan: Pain management on board. NPO for EGD, stool cultures pending. PPI, carafate, anti-emetics on board. Consults: Psych - Dr. Longoria GI - Dr. Ignacio Reviewed: CT angio = No evidence of median arcuate ligament syndrome, findings suspicious for nutcracker syndrome <JacksonSabine - Last Filed: 05/26/17 08:38> Objective - Vital Signs/Intake and Output Vital Signs (last 24 hours): Temp Pulse Resp BP Pulse Ox 98.3 F 83 20 118/78 97 05/25/17 15:00 05/25/17 15:00 05/25/17 15:00 05/25/17 15:00 05/25/17 15:00 - Labs Labs: 05/24/17 07:21 05/25/17 06:21 PT 12.7 SECONDS (9.7-12.2) H 05/24/17 07:21 INR 1.1 05/24/17 07:21 APTT 28 SECONDS (21-34) 05/24/17 07:21 Assessment and Plan - Assessment and Plan (Free Text) Plan: 31 yr female w/ history of intractible abdominal pain, anxiety, depression, celiac artery compression, diverticulosis, PUD, H. pylori, esphagitis & cannabis use. Pt seen 05/24/16 at bedside before endoscopy. She appears comfortable but concerned that she may feel pain and wants more pain medication. She denies headache, fever, chills, chest pain, sob, urinary changes. No distress noted. pt is seen and examined at bed side , still having abdominal pain , getting pain meds , psyche. is on the case , will f/u . cont. present treatment , will f /u
--- NOTE | 2017-05-24 15:51 | PCM.PSYCH ---
Initial Psychiatric Evaluation - Initial Psychiatric Evaluation Type of Admission: Voluntary History of Present Illness and Precipitating Events: Consultation ordered by Medicine team for positive UDS. Patient is a 31 year old single, no kids, employed female with a past medical history of anxiety, depression, and hypertension, who presented to the hospital with nausea, vomiting, and abdominal pain for 3 weeks. She reports she has had these symptoms since she was 10 years old, but have worsened over the past 3 weeks. The patient reports she has had anxiety and depression since she started college. She says it started with social anxiety, flushing, nervous when talking with others, which then progressed to generalized anxiety. She has been prescribed Lexapro, but stopped due to weight gain. She has been taking Prosac ( which she feels helps her symptoms), Klonopin, and Clonidine. She reports stopping all medications 1 month ago due to heart burn. As per the patient, the depression worsened when her mother 2 years ago, and reports she still has a hard time coping with her loss. Patient also reports smoking marijuana to help with nausea, vomiting, and abdominal pain, and denies using drugs, prescription pills (unless prescribed), and tobacco. She admits to drinking alcohol socially. Patient denies past hospitalizations for psychiatric disorders. She reports her father has panic disorder and abuses alcohol, otherwise, denies family history of psychiatric disordered or substance abuse disorders. Current Medications: Active Medications Generic Name Dose Route Start Last Admin Trade Name Freq PRN Reason Stop Dose Admin Calcium/Vitamin D 1 tab 05/24/17 10:00 05/24/17 09:00 Oscal-D 250 Mg-125 Units Tab PO Not Given DAILY [facility] Clonazepam 1 mg 05/23/17 06:00 05/24/17 14:03 Klonopin PO 1 mg Q8 [facility] Administration Clonidine HCl 0.2 mg 05/23/17 10:00 05/24/17 09:39 Catapres PO 0.2 mg DAILY [facility] Administration Fluoxetine HCl 40 mg 05/23/17 10:00 05/24/17 09:42 Prozac PO 40 mg DAILY [facility] Administration Hydromorphone HCl 0.5 mg 05/23/17 10:08 05/24/17 12:47 Dilaudid IVP 0.5 mg Q4H PRN Administration moderate pain Potassium Chloride 20 meq in 100 mls @ 50 mls/hr 05/24/17 10:00 05/24/17 13: 30 Potassium Chloride 20 Meq/100 Ml IVPB 05/24/17 15:59 50 mls/hr Q2 [facility] Administration Potassium Chloride 20 meq/ 1,010 mls @ 60 mls/hr 05/24/17 08:47 05/24/17 12: 53 Sodium Chloride IV 60 mls/hr .[id number] [facility] Administration Pantoprazole Sodium 40 mg 05/23/17 10:00 05/24/17 09:39 Protonix Ec Tab PO 40 mg DAILY [facility] Administration Pneumococcal Polyvalent Vaccine 0.5 ml 05/26/17 14:00 Pneumovax 23 Vaccine IM 05/26/17 14:01 .ONCE ONE Sucralfate 1 gm 05/23/17 10:00 05/24/17 09:38 Carafate Tab PO 1 gm BID SAMEER Administration Past Psychiatric History - Past Psychiatric History Pertinent Medical Hx (Current Medical&Sleep Prob, Allergies): Allergies Allergy/AdvReac Type Severity Reaction Status Date / Time No Known Allergies Allergy Verified 05/22/17 21:44 Clonazepam [Klonopin] 1 mg PO Q6 PRN 05/19/17 Fluoxetine HCl [Prozac] 40 mg PO DAILY 05/19/17 Ondansetron ODT [Zofran ODT] 4 mg PO .Q4-6H PRN #20 odt 05/19/17 Pantoprazole Sodium [Protonix] 40 mg PO QAM #30 ect 05/19/17 Sucralfate [Carafate] 1 gm PO BID #70 tab 05/19/17 cloNIDine [clonidine HCl] 0.2 mg PO DAILY 05/19/17 Review of Systems - Neurological Neurological: UNREMARKABLE - Psychiatric Psychiatric: Anxiety, Depression. absent: Homicidal Ideation, Suicidal Ideation Mental Status Examination - Personal Presentation Personal Presentation: Looks stated age - Affect Affect: Depressed - Motor Activity Motor Activity: Calm - Reliability in Providing Information Reliability in Providing Information: Fair - Speech Speech: Organized - Mood Mood: Depressed - Formal Thought Process Formal Thought Process: No Impairment - Cognitive Functions Orientation: Person, Place, Situation, Time Sensorium: Alert Attention/Concentration: Attentive Estimate of Intelligence: Average Judgement: Imparied, as evidence by: Lack of insight into illness Memory: Recent intact, as evidence by: Ability to recall events of the day - Risk Risk: Diminished functioning DSM 5 DX - DSM 5 DSM 5 Diagnosis: Major Depressive Disorder Generalized Anxiety Disorder Cannabinoids Use Disorder - Recommended/Plan of Treatment Treatment Recommendations and Plan of Treatment: Continue home medications- Prosac, Klonopin, Clonidine Individual therapydaily Psychoeducationand supportdaily Encourage compliance with meds and after care Teach healthy lifestyle methods, i.e. diet, exercise, meditation Continue medical management as per medical team. - Smoking Cessation Smoking Cessation Initiated: No
[2017-05-24 17:47] VITALS: RESP 20
--- NOTE | 2017-05-25 07:43 | CP.PCM.PN ---
<Samantha Sherwood - Last Filed: 05/25/17 08:39> Subjective - Date & Time of Evaluation Date of Evaluation: 05/25/17 Time of Evaluation: 07:00 - Subjective Subjective: GI Fellow PGY4 Progress Note Pt seen and evaluated at bedside, pt says she feels a little better after EGD with improving abdominal pain, pt tolerating liquid duet yesterday. Pt says she is willing to try regular food today. No further diarrhea. ROS: A 12pt ROS was negative except as above. Objective - Vital Signs/Intake and Output Vital Signs (last 24 hours): Temp Pulse Resp BP Pulse Ox 98.6 F 87 20 137/99 H 97 05/24/17 23:10 05/25/17 06:45 05/24/17 23:10 05/25/17 06:45 05/24/17 23:10 Intake and Output: 05/25/17 05/25/17 06:59 18:59 Intake Total 1460 Balance 1460 - Medications Medications: Current Medications Calcium/Vitamin D (Oscal-D 250 Mg-125 Units Tab) 1 tab PO DAILY [facility] Last Admin: 05/24/17 09:00 Dose: Not Given Clonazepam (Klonopin) 1 mg PO Q8 [facility] Last Admin: 05/25/17 06:18 Dose: 1 mg Clonidine HCl (Catapres) 0.2 mg PO DAILY [facility] Last Admin: 05/24/17 09:39 Dose: 0.2 mg Fluoxetine HCl (Prozac) 40 mg PO DAILY [facility] Last Admin: 05/24/17 09:42 Dose: 40 mg Hydromorphone HCl (Dilaudid) 0.5 mg IVP Q4H PRN PRN Reason: moderate pain Last Admin: 05/25/17 06:52 Dose: 0.5 mg Potassium Chloride 20 meq/ (Sodium Chloride) 1,010 mls @ 60 mls/hr IV .[id number] [facility] Last Admin: 05/24/17 12:53 Dose: 60 mls/hr Pantoprazole Sodium (Protonix Ec Tab) 40 mg PO DAILY [facility] Last Admin: 05/24/17 09:39 Dose: 40 mg Pneumococcal Polyvalent Vaccine (Pneumovax 23 Vaccine) 0.5 ml IM .ONCE ONE Stop: 05/26/17 14:01 Sucralfate (Carafate Tab) 1 gm PO BID [facility] Last Admin: 05/24/17 17:07 Dose: 1 gm - Labs Labs: 05/24/17 07:21 05/24/17 07:21 PT 12.7 SECONDS (9.7-12.2) H 05/24/17 07:21 INR 1.1 05/24/17 07:21 APTT 28 SECONDS (21-34) 05/24/17 07:21 - Constitutional Appears: Non-toxic, No Acute Distress - Head Exam Head Exam: ATRAUMATIC, NORMAL INSPECTION, NORMOCEPHALIC - Eye Exam Eye Exam: EOMI, Normal appearance, PERRL Pupil Exam: PERRL - ENT Exam ENT Exam: Mucous Membranes Moist - Respiratory Exam Respiratory Exam: Clear to Ausculation Bilateral, NORMAL BREATHING PATTERN - Cardiovascular Exam Cardiovascular Exam: RRR - GI/Abdominal Exam GI & Abdominal Exam: Soft, Normal Bowel Sounds. absent: Distended, Guarding, Tenderness - Extremities Exam Extremities Exam: Full ROM, Normal Inspection - Back Exam Back Exam: NORMAL INSPECTION - Neurological Exam Neurological Exam: Alert, Awake, Oriented x3 - Psychiatric Exam Psychiatric exam: Normal Affect, Normal Mood - Skin Skin Exam: Dry, Intact, Normal Color, Warm Assessment and Plan - Assessment and Plan (Free Text) Assessment: This is a 31yF with pmhx of depression and anxiety presenting with abdominal pain, nausea, vomiting and diarrhea. 1. 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 Unintentional weightloss 3. Diarrhea Plan: -Continue supportive care with pain control and anti-emetics -CT Angio with no evidence of any celiac artery compression -Advance to regular, low fat diet with small frequent meals -s/p EGD with mild gastritis, awaiting pathology results -PPI daily -Carafate daily -No further diarrhea -Discussed with pt about cessation of marijuana which can cause cyclical vomiting syndrome -Outpt follow up for pathology results, if tolerating diet okay for discharge home -Please call with any questions or concerns <John Hill - Last Filed: 05/25/17 08:49> Objective - Vital Signs/Intake and Output Vital Signs (last 24 hours): Temp Pulse Resp BP Pulse Ox 98.6 F 87 20 137/99 H 97 05/24/17 23:10 05/25/17 06:45 05/24/17 23:10 05/25/17 06:45 05/24/17 23:10 Intake and Output: 05/25/17 05/25/17 06:59 18:59 Intake Total 1460 Balance 1460 - Medications Medications: Current Medications Calcium/Vitamin D (Oscal-D 250 Mg-125 Units Tab) 1 tab PO DAILY [facility] Last Admin: 05/24/17 09:00 Dose: Not Given Clonazepam (Klonopin) 1 mg PO Q8 [facility] Last Admin: 05/25/17 06:18 Dose: 1 mg Clonidine HCl (Catapres) 0.2 mg PO DAILY [facility] Last Admin: 05/24/17 09:39 Dose: 0.2 mg Fluoxetine HCl (Prozac) 40 mg PO DAILY [facility] Last Admin: 05/24/17 09:42 Dose: 40 mg Hydromorphone HCl (Dilaudid) 0.5 mg IVP Q4H PRN PRN Reason: moderate pain Last Admin: 05/25/17 06:52 Dose: 0.5 mg Potassium Chloride 20 meq/ (Sodium Chloride) 1,010 mls @ 60 mls/hr IV .[id number] [facility] Last Admin: 05/24/17 12:53 Dose: 60 mls/hr Pantoprazole Sodium (Protonix Ec Tab) 40 mg PO DAILY [facility] Last Admin: 05/24/17 09:39 Dose: 40 mg Pneumococcal Polyvalent Vaccine (Pneumovax 23 Vaccine) 0.5 ml IM .ONCE ONE Stop: 05/26/17 14:01 Sucralfate (Carafate Tab) 1 gm PO BID [facility] Last Admin: 05/24/17 17:07 Dose: 1 gm - Labs Labs: 05/24/17 07:21 05/25/17 06:21 PT 12.7 SECONDS (9.7-12.2) H 05/24/17 07:21 INR 1.1 05/24/17 07:21 APTT 28 SECONDS (21-34) 05/24/17 07:21 Attending/Attestation - Attestation I have personally seen and examined this patient.: Yes I have fully participated in the care of the patient.: Yes I have reviewed all pertinent clinical information, including history, physical exam and plan: Yes Notes (Text): 05/25/17 08:46 I have seen and examined patient with GI fellow. No acute events overnight, she is seen resting in bed comfortably watching television. She reports improvement in abdominal pain and denies nausea, vomiting. Tolerating liquid diet without difficulty. Review of vitals from today shows elevated BP. Depression / anxiety Abdominal pain, vomiting, diarrhea - resolved s/p EGD yesterday showing mild gastritis - Advance diet as tolerated - Continue with supportive care, anti-emetic therapy PRN - Await biopsy results from EGD - Patient counseled regarding need for marijuana cessation as this may exacerbate underlying symptoms - Continue with PPI therapy - From GI standpoint if patient tolerates PO diet, can be discharged home with subsequent outpatient follow up, office contact information provided to patient. Will sign off case, please reconsult as necessary thank you.
[2017-05-25 08:23] LABS: BLOOD UREA NITROGEN 3 mg/dL (7-17); CALCIUM 8.3 mg/dl (8.6-10.4); GFR AFRICAN-AMERICAN > 60; GFR NON-AFRICAN AMERICAN > 60
[2017-05-25] MEDS: Pantoprazole 40 mg EC Tab PO SCH (09:59)
[2017-05-25] MEDS: Calcium-Vit D 250 mg-125 Units Tab UD PO SCH (09:59)
[2017-05-25 16:57] VITALS: BP 118/78; PULSE 83; TEMP 98.3; O2SAT 97
[2017-05-26] MEDS ORDERED: Pneumococcal 23-Valent Vaccine IM ONE (14:00)
[2017-05-26] MEDS ORDERED: Influenza Vaccine 60 mcg/0.5 mL SYR (4YR UP) IM ONE (14:00)
--- NOTE | 2017-05-27 15:13 | DS ---
CHIEF COMPLAINT: Abdominal pain, nausea, vomiting. HISTORY OF PRESENT ILLNESS: Ms. Dianne Pak is a 31-year-old female with history of depression and anxiety, came to the Emergency Room of [facility] complaining about abdominal pain, nausea, vomiting and diarrhea for three weeks. Patient reports that she usually has GI issues, but never this severe. She is having epigastric pain every time she eats something and sometimes vomits before finding any relief in abdominal discomfort. The patient reports that she was not able to hold any liquid down and solid. We admitted the patient, did angio CT, did endoscopy upper by Dr. John Hill, seen by the psychiatrist because of anxiety. As per patient, she lost her mother two years ago. 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 Most of her family is in [place], feeling depressed. Dr. Sylwia Longoria who saw the patient. The patient was cleared by Dr. John Hill and Dr. Sylwia Longoria. Discharged home. Follow up in my office as outpatient. As per patient, she had all type of medications at home and she will follow up with her psychiatrist and track and field coach and colonoscopy will be done as outpatient. Her last EGD was done five years ago and that was negative as per patient. Colonoscopy not in the past. PAST MEDICAL HISTORY: As above. FAMILY HISTORY: Family history of father noncontributory. Mother has GI issues; denies colon cancer, but mother two years ago. HABITS: Denies smoking, ethanol, but does smoke marijuana at least twice a month, denies any other illicit drugs. ALLERGIES: THE PATIENT IS NOT ALLERGIC WITH ANY MEDICATIONS. HOME MEDICATIONS: Klonopin, Catapres, Prozac, Dilaudid, Protonix. PHYSICAL EXAMINATION: VITAL SIGNS: Temperature 98.3, pulse 83, blood pressure 110/78, respiratory rate 20. HEENT: Head: Normocephalic, atraumatic. Eyes: PERRLA. Extraocular muscles intact. Conjunctivae clear. Nose patent. Mucous membranes moist. NECK: Supple. No carotid bruit. No JVD or thyromegaly. CHEST: Bilaterally symmetrical. HEART: S1 and S2 positive. LUNGS: Clear to auscultation. ABDOMEN: Soft. Nontender. No organomegaly. EXTREMITIES: No edema, no cyanosis. NEUROLOGIC: The patient is awake, alert, moving all four extremities. No focal deficits. LABORATORY DATA: White blood cells 4.7, hemoglobin 10.8, hematocrit 33.3, platelets 277,000. Sodium 135, potassium 4.2, BUN 3, creatinine 0.5, calcium 8.3. ASSESSMENT AND PLAN: Ms. Dianne Pak is a 31-year-old female with leukopenia; anemia; history of hypokalemia, improved; hypocalcemia; iron deficiency. Stool leukocyte qualitative is negative. Drug screening positive for barbiturates and cannabinoid, came with abdominal pain, seen by Dr. 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 H. pylori negative, unintentional weight loss, diarrhea, Dr. Díaz. She will do colonoscopy as outpatient. Dr. John Hill's phone number given. Continue supportive care and pain control and antiemetics. CT angio with no evidence of any celiac artery compression. Diet advanced, is low fat diet with small, frequent meals. PPI given. Carafate given. No more diarrhea. Advised to stop marijuana, which can cause cyclical vomiting syndrome. Emergency Services Professional cleared the patient for discharge. No overnight event happened. Tolerating food. Actually, track and field coach signed out the case and we will discharge the patient home . Follow up in my office. We will follow up. Sabine Paz MD
== END 2017-05-25 21:12 | disposition home or self-care (01) | DRG 392 ==
LOC: C.ER 21:36 → C.9E 05-23 00:41 → C.6T 05-23 03:09
PROVIDERS: ADMIT Internal Medicine; ATTEND Internal Medicine
PROC: 0DB88ZX Excision of Small Intestine, Via Natural or Artificial Opening Endoscopic, Diagnostic (ICD-10-PCS; principal; 2017-05-24 11:40)
DX: K29.70 Gastritis, unspecified, without bleeding (principal); E83.51 Hypocalcemia; N39.0 Urinary tract infection, site not specified; E86.0 Dehydration; K20.9 Esophagitis, unspecified; E87.6 Hypokalemia; I10 Essential (primary) hypertension; F11.90 Opioid use, unspecified, uncomplicated; F32.9 Major depressive disorder, single episode, unspecified; G43.A0 Cyclical vomiting, in migraine, not intractable; K27.9 Peptic ulcer, site unspecified, unspecified as acute or chronic, without hemorrhage or perforation; F41.1 Generalized anxiety disorder; Z87.891 Personal history of nicotine dependence; R63.4 Abnormal weight loss; F12.20 Cannabis dependence, uncomplicated

== ENCOUNTER 2017-08-07 08:51 | Emergency (ER) | payer BC ==
[2017-08-07 09:04] VITALS: O2SAT 100
[2017-08-07] MEDS ORDERED: Sodium Chloride 0.9% 1,000 ML IV ONE (09:21)
[2017-08-07 09:35] LABS: HCG,QUALITATIVE URINE NEGATIVE (NEGATIVE)
[2017-08-07] MEDS ORDERED: Sodium Chloride 0.9% 1,000 ML ONE (09:38)
[2017-08-07] MEDS ORDERED: DiphenhydrAMINE 50 mg/ml Inj IVP STA (09:39)
[2017-08-07 09:42] LABS: SQUAMOUS EPITHIAL 3 /hpf (0-5); URINE BACTERIA RARE (<OCC); URINE BILIRUBIN NEGATIVE (NEGATIVE); URINE BLOOD NEGATIVE (NEGATIVE); URINE CLARITY Hazy (Clear); URINE COLOR Yellow (YELLOW); URINE GLUCOSE (UA) NORMAL (Normal); URINE LEUKOCYTE ESTERASE NEG Leu/uL (Negative); URINE PROTEIN 1+ mg/dL (NEGATIVE); URINE UROBILINOGEN NORMAL mg/dL (0.2-1.0)
--- NOTE | 2017-08-07 09:46 | C.PDOC ---
History Of Present Illness 32 year old female presents to the ED for evaluation of abdominal pain, nausea, vomiting and diarrhea which began yesterday. Patient reports history of similar symptoms in the past and states she was diagnosed with Diverticulosis and Gastritis. At the time she was admitted for intractable abdominal pain and underwent an endoscopy in May [address] Hill. Patient has been taking Bentyl for her symptoms. She denies fever, chest pain, sob, hematochezia, hematemesis, dysuria, hematuria. Time Seen by Provider: 08/07/17 09:07 Chief Complaint (Nursing): Abdominal Pain History Per: Patient History/Exam Limitations: no limitations Onset/Duration Of Symptoms: Hrs Current Symptoms Are (Timing): Still Present Quality Of Discomfort: "Pain" Associated Symptoms: Nausea, Vomiting, Diarrhea. denies: Fever, Chills, Urinary Symptoms Additional History Per: Patient Abnormal Vaginal Bleeding: No Past Medical History Reviewed: Historical Data, Nursing Documentation, Vital Signs Vital Signs: Last Vital Signs Temp 98.2 F 08/07/17 13:30 Pulse 89 08/07/17 13:30 Resp 18 08/07/17 13:30 BP 152/41 H 08/07/17 13:30 Pulse Ox 100 08/07/17 13:30 - Medical History PMH: Anxiety, Depression, Diverticulitis, HTN Denies: Chronic Kidney Disease Surgical History: No Surg Hx - [facility] Procedures EXCISION OF SMALL INTESTINE, ENDO, DIAGN (05/23/17) Family History: States: Unknown Family Hx - Social History Hx Alcohol Use: Yes (Occasional) Hx Substance Use: No - Immunization History Hx Tetanus Toxoid Vaccination: No Hx Influenza Vaccination: Yes Hx Pneumococcal Vaccination: No Review Of Systems Constitutional: Negative for: Fever, Chills Gastrointestinal: Positive for: Nausea, Vomiting, Abdominal Pain, Diarrhea. Negative for: Hematochezia, Hematemesis Genitourinary: Negative for: Dysuria, Hematuria Physical Exam - Physical Exam Appears: Non-toxic, Other (uncomfortable ) Skin: Normal Color, Warm, Dry Head: Atraumatic, Normacephalic Eye(s): bilateral: Normal Inspection, EOMI Nose: Normal Oral Mucosa: Moist Neck: Normal ROM, Supple Chest: Symmetrical, No Deformity, No Tenderness Cardiovascular: Rhythm Regular Respiratory: Normal Breath Sounds, No Rales, No Rhonchi, No Wheezing Gastrointestinal/Abdominal: Soft, Tenderness (epigastric and left lower quadrant ), No Guarding, No Rebound Back: No CVA Tenderness, No Vertebral Tenderness Extremity: Normal ROM, Capillary Refill (less than 2 seconds ) Neurological/Psych: Oriented x3, Normal Speech, Normal Cognition ED Course And Treatment - Laboratory Results Result Diagrams: 08/07/17 09:48 08/07/17 09:48 O2 Sat by Pulse Oximetry: 100 (on RA ) Pulse Ox Interpretation: Normal Progress Note: Bloodwork, urinalysis, CT A/P ordered and reviewed. Benadryl IVP , Pepcid IVP, Reglan IVP, Toradol IVP, and IV Fluids administered. On re- evaluation, pain persists. Morphine ordered. On re-evaluation, pain improved minimally. Pt was offered admission. Pt refused. Verbalized she understands the risks and benefits. Case discussed with Dr Jonas, covering for Dr Hill, who will follow up out pt. Disposition - Disposition Disposition: HOME/ ROUTINE Disposition Time: 13:23 Condition: STABLE Additional Instructions: Return to ER if symptoms persist or worsen. Follow up with Dr Hill as scheduled. Prescriptions: Ciprofloxacin HCl [Cipro] 500 mg PO BID #14 tab Dicyclomine [Bentyl] 10 mg PO QID #20 cap Metronidazole [Flagyl] 500 mg PO BID #14 tab Instructions: Acute Abdomen (Belly Pain), Adult (DC) Forms: [email or web address] (Greenlandic) - Clinical Impression Clinical Impression: Colitis, Abdominal pain - PA / RN POOL / Resident Statement MD/DO has reviewed & agrees with the documentation as recorded. - Scribe Statement The provider has reviewed the documentation as recorded by the Scribe (Barb Jonas) All medical record entries made by the Scribe were at my direction and personally dictated by me. I have reviewed the chart and agree that the record accurately reflects my personal performance of the history, physical exam, medical decision making, and the department course for this patient. I have also personally directed, reviewed, and agree with the discharge instructions and disposition.
[2017-08-07] MEDS ORDERED: DiphenhydrAMINE 50 mg/ml Inj ONE (09:51)
[2017-08-07 09:55] LABS: BASO % 0.8 % (0.0-2.0); EOS % 0.4 % (0.0-4.0); HEMOGLOBIN 13.4 g/dL (11.0-16.0); LYMPH # 0.6 K/uL (1.0-4.3); LYMPH % 14.4 % (20.0-40.0); MEAN CELL VOLUME 83.1 fL (81.0-99.0); MEAN CORPUSCULAR HEMOGLOBIN 27.9 pg (27.0-31.0); MEAN CORPUSCULAR HGB CONC 33.5 g/dL (33.0-37.0); MEAN PLATELET VOLUME 7.1 fL (7.2-11.7); MONO # 0.2 K/uL (0.0-0.8); MONO % 5.3 % (0.0-10.0); NEUT # 3.3 K/uL (1.8-7.0); NEUT % 79.1 % (50.0-75.0); RBC 4.82 Mil/uL (3.80-5.20); RED CELL DISTRIBUTION WIDTH 14.6 % (11.5-14.5); WHITE BLOOD COUNT 4.2 K/uL (4.8-10.8)
[2017-08-07 10:06] LABS: ALB/GLOB RATIO 1.3 (1.0-2.1); ALBUMIN 4.6 g/dL (3.5-5.0); ALT/SGPT 25 U/L (9-52); AST/SGOT 39 U/L (14-36); BLOOD UREA NITROGEN 21 mg/dL (7-17); CALCIUM 8.6 mg/dl (8.6-10.4); GFR AFRICAN-AMERICAN > 60; GFR NON-AFRICAN AMERICAN > 60; LIPASE 143 U/L (23-300)
[2017-08-07] MEDS ORDERED: Iodixanol 320 MG/ML 100 ML BOTTLE IV ONE (10:27)
[2017-08-07] MEDS ORDERED: Morphine 4 MG/ML VIAL ONE (11:00)
--- NOTE | 2017-08-07 11:37 | CT ---
PROCEDURE: CT Abdomen and Pelvis with contrast HISTORY: Abdominal pain COMPARISON: 05/19/2017. TECHNIQUE: CT scan of the abdomen and pelvis was performed after administration of intravenous contrast. Oral contrast was not administered. Coronal and sagittal reformatted images were obtained. Contrast dose: 100 mL Visipaque Radiation dose: Total exam DLP = 356.70 mGy-cm. This CT exam was performed using one or more of the following dose reduction techniques: Automated exposure control, adjustment of the mA and/or kV according to patient size, and/or use of iterative reconstruction technique. FINDINGS: LOWER THORAX: The lung bases are clear. LIVER: There is mild hepatomegaly and diffuse fatty infiltration. No gross lesion or ductal dilatation. GALLBLADDER AND BILE DUCTS: There are no calcified gallstones. PANCREAS: Normal in size with homogeneous enhancement. No gross lesion or ductal dilatation. SPLEEN: Normal in size and appearance. ADRENALS: No discrete nodule. KIDNEYS AND URETERS: Both kidneys are normal in size with homogeneous enhancement. No hydronephrosis. No solid mass. VASCULATURE: No aortic aneurysm. BOWEL: Evaluation of the bowel and colon is limited in the absence of oral contrast. Allowing for this, there is mild circumferential mural thickening in the ascending colon. The transverse and descending colon are decompressed. No bowel dilatation or obstruction. APPENDIX: Normal appendix. PERITONEUM: No free fluid. No free air. LYMPH NODES: No enlarged lymph nodes. BLADDER: Partially decompressed. REPRODUCTIVE: The uterus is normal in size. An intrauterine device remains in place. BONES: No acute fracture. OTHER FINDINGS: None. IMPRESSION: Evaluation of the small bowel and colon is limited in the absence of oral contrast. Allowing for this, apparent mild circumferential mural thickening in the ascending colon could represent nonspecific colitis. Clinical follow-up is advised. No bowel dilatation or obstruction. Mild hepatomegaly and fatty infiltration in the liver.
[2017-08-07] MEDS ORDERED: Oxycodone/Acetaminophen 5/325 mg Tab PO STA (13:30)
[2017-08-07] MEDS ORDERED: Oxycodone/Acetaminophen 5/325 mg Tab ONE (13:32)
[2017-08-07 13:40] VITALS: PULSE 89; RESP 18; TEMP 98.2
[2017-08-07 17:37] VITALS: BP 152/71
== END 2017-08-07 13:41 | disposition home or self-care (01) ==
LOC: C.ER 08:51
DX: K52.9 Noninfective gastroenteritis and colitis, unspecified (principal); R10.13 Epigastric pain
CPT/HCPCS: 74177; 80053; 81001; 83690; 84703; 85025; 96361; 96365; 96375; 99285; J1200; J1885; J2270; J2765; J7040; Q9967

== ENCOUNTER 2017-09-16 07:50 | Day surgery (SDC) | payer BC ==
[2017-09-16 08:27] VITALS: BMI 25.7
[2017-09-16] MEDS ORDERED: Midazolam 2 MG/2 ML VIAL ONE (09:42)
[2017-09-16] MEDS ORDERED: Propofol 10 mg/ml Inj (20 ML) ONE (09:42)
--- NOTE | 2017-09-16 10:02 | CP.SDSHP ---
Same Day Surgery H & P - History Proposed Procedure: colonoscopy Pre-Op Diagnosis: follow up colitis - Previous Medical/Surgical History Comments: depression - Allergies Allergies: Allergies No Known Allergies Allergy (Verified 08/07/17 09:05) - Physical Exam General Appearance: NAD Vital Signs: Vital Signs 09/16/17 08:14 Temperature 97.9 F Pulse Rate 88 Respiratory 16 Rate Blood Pressure 130/84 O2 Sat by Pulse 98 Oximetry Mental Status: Alert & Oriented x3 Neuro: WNL Heart: WNL Lungs: WNL GI: WNL - {Optional Preform as Required} Abdomen: WNL - Impression Pt. Evaluated Today:Candidate for Anesthesia & Procedure: Yes - Date & Time Date: 09/16/17 Time: 10:02 Short Stay Discharge - Short Stay Discharge Admitting Diagnosis/Reason for Visit: COLITIS Disposition: HOME/ ROUTINE
[2017-09-16 12:51] VITALS: TEMP 98; O2SAT 100
[2017-09-16 12:58] VITALS: BP 118/78; PULSE 65; RESP 18
== END 2017-09-16 11:30 | disposition home or self-care (01) ==
LOC: C.ENDO 07:50
PROVIDERS: ATTEND Internal Medicine Gastroenterology
DX: D12.5 Benign neoplasm of sigmoid colon (principal); K52.9 Noninfective gastroenteritis and colitis, unspecified; D12.4 Benign neoplasm of descending colon
CPT/HCPCS: 45380; 84703; 88305; J2250; J2704

== ENCOUNTER 2017-10-05 13:08 | Emergency (ER) | payer BC ==
[2017-10-05 13:09] VITALS: BMI 25.7
--- NOTE | 2017-10-05 14:00 | C.PDOC ---
History Of Present Illness 32 y/o female presents to the ED complaining of chronic abdominal pain, which has gradually worsened since Wednesday. Patient has a pmhx of gastritis and diverticulosis, and is followed by concrete analyst Dr. Hill. States that today she called Dr. Hill, who referred to come to the ED for further evaluation. She recently had an endoscopy that was indicative of gastritis. Pain is associated with nausea, vomiting, and loose stools (occurring 3x daily) . Patient tried taking Tylenol and Advil today with no improvement. Medications reviewed: Carafate Bentyl Prozac Klonopin Clonidine Time Seen by Provider: 10/05/17 13:46 Chief Complaint (Nursing): Abdominal Pain History Per: Patient History/Exam Limitations: no limitations Onset/Duration Of Symptoms: Days Current Symptoms Are (Timing): Still Present Past Medical History Reviewed: Historical Data, Nursing Documentation, Vital Signs Vital Signs: Last Vital Signs Temp 98.3 F 10/05/17 16:40 Pulse 82 10/05/17 16:40 Resp 14 10/05/17 16:40 BP 119/79 10/05/17 16:40 Pulse Ox 97 10/05/17 16:40 - Medical History PMH: Anxiety, Depression, Diverticulitis, HTN Denies: Chronic Kidney Disease Surgical History: Endoscopy - [facility] Procedures EXCISION OF SMALL INTESTINE, ENDO, DIAGN (05/23/17) Family History: States: Unknown Family Hx - Social History Hx Tobacco Use: No Hx Alcohol Use: Yes (Occasional) Hx Substance Use: No - Immunization History Hx Tetanus Toxoid Vaccination: No Hx Influenza Vaccination: Yes Hx Pneumococcal Vaccination: No Review Of Systems Except As Marked, All Systems Reviewed And Found Negative. Constitutional: Negative for: Fever, Chills Eyes: Negative for: Pain, Vision Change, Conjunctivae Inflammation ENT: Negative for: Ear Pain, Ear Discharge Cardiovascular: Negative for: Chest Pain, Palpitations, Orthopnea, Paroxysmal Noc. Dyspnea Respiratory: Negative for: Cough, Shortness of Breath, Hemoptysis, SOB with Excertion, Pleuritic Pain, Sputum Gastrointestinal: Positive for: Nausea, Vomiting, Abdominal Pain, Diarrhea. Negative for: Hematochezia, Hematemesis Genitourinary: Negative for: Dysuria, Frequency Musculoskeletal: Negative for: Neck Pain, Shoulder Pain, Arm Pain, Back Pain Skin: Negative for: Rash Neurological: Negative for: Weakness, Numbness, Incoordination, Change in Speech Psych: Negative for: Anxiety, Depression Physical Exam - Physical Exam Appears: Non-toxic, No Acute Distress Skin: Normal Color, Warm, Dry Head: Atraumatic, Normacephalic Eye(s): bilateral: Normal Inspection, PERRL, EOMI Ear(s): Bilateral: Normal Nose: Normal Oral Mucosa: Moist Tongue: Normal Appearing Lips: Normal Appearing Teeth: Normal Dentition Throat: Normal Neck: Normal ROM, Supple Chest: Symmetrical Cardiovascular: Rhythm Regular, No Murmur Respiratory: Normal Breath Sounds, No Accessory Muscle Use Gastrointestinal/Abdominal: Soft, Tenderness (mild tenderness to epigastrium), No Guarding, No Rebound Back: Normal Inspection, No CVA Tenderness, No Vertebral Tenderness Extremity: Bilateral: Atraumatic, Normal Color And Temperature, Normal ROM Neurological/Psych: Oriented x3, Normal Speech ED Course And Treatment - Laboratory Results Result Diagrams: 10/05/17 15:17 10/05/17 15:17 O2 Sat by Pulse Oximetry: 100 (RA) Pulse Ox Interpretation: Normal Medical Decision Making Medical Decision Making: Time: 14:16 Initial Plan: --CMP --CBC --Lipase --UA --URINE PREG --IVF hydration --Protonix 40 mg IV --Maalox Plus 30 ml PO --Haldol 2 mg PO --Ativan 1 mg IM --Compazine 10 mg IM --Reevaluation 15:06 Patient given second dose Protonix 20 mg PO, and Ativan 1 mg PO. 16:14 Labs reviewed, and are unremarkable. Urine still pending. Patient has her period and does not want to stay any longer. Recommended to follow up with PMD and her GI specialist regarding her chronic abdominal pain. Disposition Counseled Patient/Family Regarding: Diagnosis, Need For Followup - Disposition Referrals: John Hill MD [Staff Provider] - Disposition: HOME/ ROUTINE Disposition Time: 16:15 Condition: GOOD Additional Instructions: return if symptoms worsen Forms: [facility] (Iranian) - Clinical Impression Clinical Impression: Vomiting, Nausea, Abdominal pain, Gastritis - Scribe Statement The provider has reviewed the documentation as recorded by the Scribe (Rebeca Valenzuela) Provider Attestation: All medical record entries made by the Scribe were at my direction and personally dictated by me. I have reviewed the chart and agree that the record accurately reflects my personal performance of the history, physical exam, medical decision making, and the department course for this patient. I have also personally directed, reviewed, and agree with the discharge instructions and disposition.
[2017-10-05] MEDS ORDERED: Aluminum Hydroxide/Magnesium Hydroxide Susp (30 mL) PO STA (14:16)
[2017-10-05] MEDS ORDERED: Sodium Chloride 0.9% 1,000 ML IV STA (14:16)
[2017-10-05] MEDS ORDERED: Pantoprazole 20 mg EC Tab PO STA (15:06)
[2017-10-05] MEDS ORDERED: Sodium Chloride 0.9% 1,000 ML ONE (15:07)
[2017-10-05] MEDS ORDERED: Aluminum Hydroxide/Magnesium Hydroxide Susp (30 mL) ONE (15:07)
[2017-10-05 15:22] LABS: BASO # 0.1 K/uL (0.0-0.2); BASO % 1.5 % (0.0-2.0); EOS # 0.1 K/uL (0.0-0.7); EOS % 1.5 % (0.0-4.0); HEMOGLOBIN 11.8 g/dL (11.0-16.0); LYMPH # 1.5 K/uL (1.0-4.3); LYMPH % 31.1 % (20.0-40.0); MEAN CORPUSCULAR HEMOGLOBIN 28.5 pg (27.0-31.0); MEAN CORPUSCULAR HGB CONC 33.1 g/dL (33.0-37.0); MEAN PLATELET VOLUME 7.7 fL (7.2-11.7); MONO # 0.4 K/uL (0.0-0.8); MONO % 7.7 % (0.0-10.0); NEUT # 2.7 K/uL (1.8-7.0); NEUT % 58.2 % (50.0-75.0); RBC 4.13 Mil/uL (3.80-5.20); RED CELL DISTRIBUTION WIDTH 13.9 % (11.5-14.5); WHITE BLOOD COUNT 4.7 K/uL (4.8-10.8)
[2017-10-05 15:35] LABS: ALB/GLOB RATIO 1.3 (1.0-2.1); ALBUMIN 4.2 g/dL (3.5-5.0); ALT/SGPT 13 U/L (9-52); AST/SGOT 21 U/L (14-36); BLOOD UREA NITROGEN 10 mg/dL (7-17); CALCIUM 9.1 mg/dl (8.6-10.4); GFR AFRICAN-AMERICAN > 60; GFR NON-AFRICAN AMERICAN > 60
[2017-10-05 15:44] LABS: LIPASE 237 U/L (23-300)
[2017-10-05 16:11] LABS: HCG,QUALITATIVE URINE NEGATIVE (NEGATIVE)
[2017-10-05 16:18] LABS: SQUAMOUS EPITHIAL 9 /hpf (0-5); URINE BACTERIA OCC (<OCC); URINE BILIRUBIN NEGATIVE (NEGATIVE); URINE BLOOD NEGATIVE (NEGATIVE); URINE CLARITY Hazy (Clear); URINE COLOR Yellow (YELLOW); URINE GLUCOSE (UA) NORMAL (Normal); URINE LEUKOCYTE ESTERASE NEG Leu/uL (Negative); URINE PROTEIN NEGATIVE (NEGATIVE); URINE UROBILINOGEN NORMAL mg/dL (0.2-1.0)
[2017-10-05 16:41] VITALS: BP 119/79; PULSE 82; RESP 14; TEMP 98.3
[2017-10-05] MEDS ORDERED: Oxycodone/Acetaminophen 5/325 mg Tab PO STA ×2 (17:33→17:45)
[2017-10-05] MEDS ORDERED: Oxycodone/Acetaminophen 5/325 mg Tab ONE (17:44)
[2017-10-05 21:48] VITALS: O2SAT 100
== END 2017-10-05 18:11 | disposition home or self-care (01) ==
LOC: C.ER 13:08
DX: K29.70 Gastritis, unspecified, without bleeding (principal); R11.2 Nausea with vomiting, unspecified; R10.9 Unspecified abdominal pain; I10 Essential (primary) hypertension
CPT/HCPCS: 80053; 81001; 83690; 84703; 85025; 96372; 96374; 96375; 99284; C9113; J0780; J1885; J7040